=== PATIENT | male | born 1990 | race African-American/Black ===

== ENCOUNTER → 2017-01-01 | Outpatient (CLI) | payer BC ==
[~2017-01-01] MED LIST: ALBU17AE16 IH; FLUT1DIS4 IH; MONT10TA15 PO
--- NOTE | 2017-01-01 09:10 | DI ---
Indication: ITS.REASON: M25.562 PAIN IN LEFT KNEE PROCEDURE: MRI KNEE LEFT W/O CONTRAST: Encounter: Initial Comparison: Left knee radiographs dated February 26, 2015 Technique: Multiplanar multisequence MR imaging of the left knee was performed without contrast. Findings: The lateral meniscus is normal. Medial meniscus is normal. The ACL and PCL are normal. The MCL and lateral collateral ligament complex are intact. The extensor mechanism shows focal edema at the lateral margin of the patellar tendon origin and superolateral aspect of Hoffa's fat pad. Bone marrow signal intensity is normal. No acute fracture. The cartilage of the medial, lateral and patellofemoral compartments is normal. No joint effusion. No Mitchell's cyst. Muscular signal intensity is normal. Impression: Edema at the superolateral aspect of Hoffa's fat pad and lateral margin of the patellar tendon origin could be due to contusion or strain. No meniscal or ligamentous injury. .
== END ==
LOC: IMA 07:51
PROVIDERS: ATTEND Family Medicine
DX: M25.562 Pain in left knee (principal); R60.0 Localized edema